=== PATIENT | female | born 1965 | race Caucasian/White ===

== ENCOUNTER 2022-01-03 01:26 | Day surgery (SDC) | payer OTHER, SELFPAY ==
[2021-12-20 13:14] VITALS: BMI 57.9
[2022-01-03 08:09] VITALS: BP 150/85; PULSE 69; RESP 20; TEMP 36.5; O2SAT 98
[2022-01-03] MEDS: LACTATED RINGERS 1,000 ML 150 ML IV CONT (08:27)
--- NOTE | 2022-01-03 08:41 | WPDGICN ---
Assessment and Plan Assessment and plan (1) Encounter for screening colonoscopy: Code(s): Z12.11 - Encounter for screening for malignant neoplasm of colon Status: Acute Assessment and Plan: Patient presents for screening colonoscopy because of her age. Plan is for high-fiber diet further recommendations will be given after endoscopy. (2) Rectal bleeding: Code(s): K62.5 - Hemorrhage of anus and rectum Status: Acute Assessment and Plan: Rectal bleeding noted after taking strong laxative preparation for endoscopy. This will be evaluated time of colonoscopy. High-fiber diet advised. Further recommendations may be given after endoscopy. (3) Obese: Code(s): E66.9 - Obesity, unspecified Status: Acute Assessment and Plan: Patient is overweight. She needs to monitor caloric intake and increase activity. Continued weight loss encouraged. GI Consult Note Consult date/time: 01/03/22 08:41 HPI: Zo Gallardo is a 56 year old female presents for screening colonoscopy. Patient's current weight appetite and bowel movements are normal. She denies abdominal pain. Patient reports on taking preparation for screening colonoscopy had some bright red blood per rectum. She denies any abdominal or rectal pain. Her family history is noncontributory. She she does not normally have blood in her stools. Review of Systems Review of Systems: All systems reviewed & are unremarkable except as noted in HPI and below PMFSH Surgical History Surgical History History of right knee surgery Right TKA, Dr. Sagastume, 2013 History of shoulder surgery Left-2018 Right-2019 Dr. Sagastume Family History Family History Other Diabetes mellitus Hypertension Social History Social History Alcohol intake: current Substance use: never Substance use type: does not use Living arrangements: with family Gender identity (if verbalized by the patient): Female Spiritual care concerns: No Meds Home Medications and Allergies Home Medications Medication Instructions Recorded Confirmed Type lisinopril 10 1 tablet PO DAILY 10/30/20 01/03/22 History mg-hydrochlorothiazide 12.5 mg tablet vitamin B complex [B 1 tablet PO DAILY 12/20/21 01/03/22 History Complex-Vitamin B12] Allergies Allergy/AdvReac Type Severity Reaction Status Date / Time PROPOXYPHENE NAPSYLATE Allergy Mild Itching Uncoded 01/03/22 08:08 Vital Signs Vital Signs - 24 hr 01/03/22 08:09 Temperature 97.7 F Pulse Rate 69 Respiratory Rate 20 Blood Pressure 150/85 H Pulse Oximetry 98 Exam Narrative: Physical exam reveals patient be alert. Vital signs stable. HEENT exam is unremarkable. Patient is anicteric. Lungs are clear to auscultation and percussion. Heart is without murmur or extra sounds. Abdomen is obese. Bowel sounds are present soft nontender with no organomegaly. Digital external rectal exam is normal.
[2022-01-03 09:14] VITALS: BP 102/78; PULSE 84; RESP 22; O2SAT 100
[2022-01-03 09:24] VITALS: BP 114/74; PULSE 78; RESP 20; O2SAT 100
[2022-01-03 09:34] VITALS: BP 127/69; PULSE 74; RESP 20; O2SAT 100
--- NOTE | 2022-01-03 12:14 | SUR.PHASEII ---
pt had episode of vomiting after sitting up in chair and getting dressed for discharge. states suddenly became very nauseated, vomited x 2. states she felt much better afterwards. pt did not a lot of sinus drainage and she feels this contributed to the nausea. left via wc with no co.
== END 2022-01-03 10:09 | disposition home or self-care (01) ==
PROVIDERS: PCP Internal Medicine Infectious Disease; Visit Provider Internal Medicine Gastroenterology
PROC: 0DJD8ZZ Inspection of Lower Intestinal Tract, Via Natural or Artificial Opening Endoscopic (ICD-10-PCS; CPT 45378; principal; 2022-01-03 09:00)
DX: Z12.11 Encounter for screening for malignant neoplasm of colon (principal); K64.8 Other hemorrhoids; K57.30 Diverticulosis of large intestine without perforation or abscess without bleeding; K62.5 Hemorrhage of anus and rectum; E66.01 Morbid (severe) obesity due to excess calories; Z68.43 Body mass index [BMI] 50.0-59.9, adult
CPT/HCPCS: 45378; J2704; J7120